=== PATIENT | male | born 1975 | race Hispanic/Latino ===

== ENCOUNTER 2020-09-29 19:02 | Emergency (ER) | payer SELFPAY ==
[~2020-09-29] VITALS: Ht 167.6 cm; Wt 79.5 kg
[2020-09-29] MEDS ORDERED: BENADRYL 50MG C50 MG PO (19:28)
[2020-09-29] MEDS ORDERED: BENADRY2 EX (19:28)
[2020-09-29] MEDS ORDERED: MEDDOSEPAK PO (19:28)
[2020-09-29 19:40] VITALS: BP 124/74
== END 2020-09-29 19:49 | disposition home or self-care (01) | DRG 607 ==
LOC: ED 19:02
DX: L25.5 Unspecified contact dermatitis due to plants, except food (principal); F17.210 Nicotine dependence, cigarettes, uncomplicated

== ENCOUNTER 2021-09-06 23:18 | Emergency (ER) | payer SELFPAY ==
[~2021-09-06] VITALS: Ht 167.6 cm; Wt 80.0 kg
[~2021-09-06 23:18] MED LIST: BENADRY2 EX; BENADRYL 50MG C50 MG PO; MEDDOSEPAK PO
[2021-09-06 23:36] VITALS: BP 105/66
[2021-09-06] MEDS ORDERED: STERAPRED DS10 MG PO (23:39)
[2021-09-07] VITALS: BP 102/66
[2021-09-07 00:30] VITALS: BP 100/66
== END 2021-09-07 00:34 | disposition home or self-care (01) | DRG 607 ==
LOC: ED 23:18
DX: L23.7 Allergic contact dermatitis due to plants, except food (principal); F17.200 Nicotine dependence, unspecified, uncomplicated

== ENCOUNTER 2022-01-22 17:49 | Emergency (ER) | payer SELFPAY ==
[~2022-01-22] VITALS: Ht 167.6 cm; Wt 90.0 kg
[~2022-01-22 17:49] MED LIST changes: +STERAPRED DS10 MG PO
[2022-01-22 18:35] VITALS: BP 109/71
[2022-01-22 18:45] VITALS: BP 111/60
[2022-01-22 19:00] VITALS: BP 102/64
[2022-01-22] MEDS ORDERED: MEDDOSEPAK PO (19:08)
[2022-01-22 19:15] VITALS: BP 102/67
[2022-01-22 19:30] VITALS: BP 95/61
== END 2022-01-22 19:50 | disposition home or self-care (01) | DRG 607 ==
LOC: ED 17:49
DX: L23.7 Allergic contact dermatitis due to plants, except food (principal); F17.200 Nicotine dependence, unspecified, uncomplicated